=== PATIENT | female | born 1980 | race Caucasian/White ===

== ENCOUNTER → 2017-01-03 | Outpatient (CLI) | payer OTHER ==
[~2017-01-03] MED LIST: ADVIL200 M2; ALBUTEROL17 GM INH; ATARAX PO; BACTRIM DS TABL1 TA1 PO; BIRTH CONTROL PILL; CARAFATE1 G PO; CELEXA20 MG PO; CLEOCIN PO; FAMOTIDINE PO; FLEXERIL10 MG PO; HYDROCODON-ACE1 EACH PO; KLONOPIN0.5 MG PO; LAMICTAL PO; LORTAB 7.51 TAB 7.5/ PO; MOBIC PO; NAPROXEN SODIU500 MG PO; NEURONTIN PO; PHENERGAN SUPP25 MG PR; PHENERGAN25 M1 PO; PHENERGAN25 MG PO; PRILOSEC PO; PRILOSEC20 MG PO; TRAMADOL HCL50 M1 PO; TUMS500 MG PO; ULTRAM PO; VITAMIN D1000 UNI1 PO; VITAMIN D400 UNI2; VOLTAREN75 MG PO; YAZ 28 TABLET1 TAB PO; ZITHROMAX PO; ZOFRAN PO
--- NOTE | ~2017-01-03 | MR104 ---
[facility] A Service of [facility] RADIOLOGY TEXT RESULTS PATIENT: GIOVANNY RUSS LOCATION: [facility] : 82 UNIT #: [id number] AGE: [address]: ROSITA ECHAVARRIA APRN SEX: F ORDER DR: [id number] [address] [address] [id number] O MR#: [id number] Acc #: [id number] NAME: GIOVANNY RUSS : 1980 SEX: F STUDY DATE/TIME: 01/03/2017 15:52 UNIT: [facility] ROOM: STUDY DESCRIPTION: MR Knee Wo Contrast Rt Attending Physician: Rosita Echavarria Aprn Referring Physician: Rosita Echavarria Aprn Ordering Physician: Rosita Echavarria Aprn Primary Care Physician: Kehinde Bashir M.D. MRI CENTER REPORT This report is preliminary unless electronic signature is present. EXAM MRI right knee 01/03/2017 COMPARISON STUDIES Comparison - right knee radiographs 11/29/2016. HISTORY History - order states right knee pain. History sheet states fell down onto knee about 10 weeks ago at home. No knee surgery. Pain. Pain not improving. Difficult with ambulation. FINDINGS There is mild effusion and neural popliteal cyst. Patellofemoral alignment is normal. 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 Femoral trochlear articular cartilage is within limits. Quadriceps and patellar tendons are intact. There is superficial prepatellar tendon inflammation. Cruciate ligaments are normal. There is minimal myxoid degeneration near the free margin of the posterior horn of the lateral meniscus without a discrete tear. Lateral collateral ligament complex and popliteus tendon are intact. Lateral compartment articular cartilage is within normal limits. There is a radial tear in the mid-body of the medial meniscus. There is no displaced meniscal flap or fragment. The MCL is intact. 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 Marrow edema of the corner of the tibia is likely reactive to the arthrosis and/or meniscus tear. There is mild reactive MCL bursitis. There is no marrow lesion, fracture, or loose body. IMPRESSION 1. The predominant abnormality is a radial tear of the mid-body of the medial meniscus without a displaced flap or fragment. 2. Cezv-vp-nbsvagms medial compartment arthrosis and likely reactive MCL bursitis. 3. Joint effusion. 4. Cruciate ligaments are normal. 5. Myxoid signal posterior horn lateral meniscus without a discrete tear. 6. Minimal low-grade chondromalacia patella. Dictated by... Rima Melo M.D. THIS IS AN ELECTRONICALLY VERIFIED REPORT Rima Melo M.D. at 01/05/2017 8:32 AM [facility]/pcl TD: 01/04/2017 16:23 JOB #: [id number] MRI CENTER REPORT Page 1 of 1
== END | disposition home or self-care (01) ==
LOC: SMRI 15:35
DX: M25.561 Pain in right knee (principal); M23.203 Derangement of unspecified medial meniscus due to old tear or injury, right knee; M17.11 Unilateral primary osteoarthritis, right knee; M25.461 Effusion, right knee; M22.41 Chondromalacia patellae, right knee
CPT/HCPCS: 73721